=== PATIENT | male | born 1950 | race Caucasian/White ===

== ENCOUNTER → 2023-11-14 12:23 | Outpatient (REF) | payer MEDICARE, OTHER, SELFPAY | LOC: RAD 12:23 | PROVIDERS: ATTENDING PHYSICIAN Internal Medicine | DX: M79.672 Pain in left foot (principal); I50.32 Chronic diastolic (congestive) heart failure | CPT/HCPCS: 73630 ==

== ENCOUNTER → 2024-07-01 11:31 | Outpatient (REF) | payer MEDICARE, OTHER, SELFPAY | LOC: DHSLP 11:31 | PROVIDERS: ATTENDING PHYSICIAN Internal Medicine; FAMILY PHYSICIAN Internal Medicine | DX: G47.33 Obstructive sleep apnea (adult) (pediatric) (principal); R06.83 Snoring | CPT/HCPCS: 95800 ==

== ENCOUNTER → 2025-01-26 13:53 | Outpatient (REF) | payer MEDICARE, OTHER, SELFPAY | LOC: RCS 13:53 | PROVIDERS: ATTENDING PHYSICIAN Internal Medicine Cardiovascular Disease; FAMILY PHYSICIAN Internal Medicine; REFERRING PHYSICIAN Internal Medicine Cardiovascular Disease | DX: I48.0 Paroxysmal atrial fibrillation (principal); I34.0 Nonrheumatic mitral (valve) insufficiency | CPT/HCPCS: 93306 ==